=== PATIENT | female | born 1995 | race Caucasian/White ===

== ENCOUNTER 2021-03-18 18:38 | Inpatient (IN) | payer OTHER, SELFPAY ==
[~2021-03-18] VITALS: Ht 157.5 cm; Wt 109.8 kg
[~2021-03-18 18:38] MED LIST: OXYTOCIN 20 UNITS in NACL 0.9% 1,000 ML IV SCH
[2021-03-18 19:40] VITALS: BP 117/75
[2021-03-18] MEDS ORDERED: LACTATED RINGERS 500 ML IV SCH (19:45)
[2021-03-18 20:45] LABS: BASOPHILS % (AUTO) 0.2 % (0.0-2.0); EOSINOPHILS # (AUTO) 0.1 K/uL (0-0.4); EOSINOPHILS % (AUTO) 0.5 % (0.0-4.0); HEMATOCRIT 38.3 % (36-48); HEMOGLOBIN 12.8 g/dL (12.0-16.0); LYMPHOCYTES % (AUTO) 16.2 % (20.5-51.1); MEAN CORPUSCULAR HEMOGLOBIN 30 pg (27-31); MEAN CORPUSCULAR HGB CONC 33 g/dL (33-37); MEAN CORPUSCULAR VOLUME 88.8 fL (80-94); MONOCYTES # (AUTO) 0.9 K/uL (0.8-1.0); NEUTROPHILS # (AUTO) 9.3 K/uL (1.8-7.7); NEUTROPHILS % (AUTO) 76.1 % (42.2-75.2); PLATELET COUNT (AUTO) 225 K/uL (140-450); RED BLOOD CELL COUNT(AUTO) 4.32 MIL/uL (4.20-5.40); RED CELL DISTRIBUTION WIDTH 13.1 % (11.6-13.7); WHITE BLOOD COUNT (AUTO) 12.2 K/uL (4.8-10.8)
[2021-03-18 21:04] LABS: ALBUMIN 2.8 g/dL (3.4-5.0); ANION GAP 14.5 (8-16); CARBON DIOXIDE 19.4 mmol/L (21-32); CREATININE 0.5 mg/dL (0.6-1.3); POTASSIUM 3.9 mmol/L (3.5-5.1); TOTAL BILIRUBIN 0.2 mg/dL (0.0-1.0)
[2021-03-18 22:39] LABS: APPEARANCE,URINE CLEAR (CLEAR); BILIRUBIN,URINE NEGATIVE (NEGATIVE); BLOOD, URINE 3+ (NEGATIVE); COLOR,URINE YELLOW (YELLOW); LEUKOCYTE ESTERASE ,URINE NEGATIVE (NEGATIVE); NITRITE, URINE NEGATIVE (NEGATIVE); UGLUCOSE NEGATIVE (NEGATIVE)
[2021-03-18 22:53] LABS: RBC,URINE 0-5 /HPF (0-5)
[2021-03-18] MEDS: LACTATED RINGERS 1,000 ML IV SCH (23:26)
[2021-03-18] MEDS ORDERED: OXYTOCIN 20 UNITS in LACTATED RINGERS 1,000 ML IV SCH (23:50)
[2021-03-19] MEDS ORDERED: OXYTOCIN 20 UNITS/LR PREMIX 1,000 ML IV ONE (05:51)
--- NOTE | 2021-03-19 08:49 | NUR ---
PATIENT HAS BEEN SCREENED AND CATEGORIZED LOW NUTRITION RISK. PATIENT WILL BE SEEN WITHIN 7 DAYS OF ADMISSION. 03/25/[address]
[2021-03-19] MEDS ORDERED: MORPHINE SULFATE 10 MG/ML VIAL ONE (09:49)
[2021-03-19] MEDS ORDERED: ONDANSETRON 4 MG/2 ML VIAL ONE (09:50)
[2021-03-19] MEDS ORDERED: ONDANSETRON 4 MG/2 ML VIAL IVP PRN (09:50)
[2021-03-19] MEDS: MORPHINE SULFATE 10 MG/ML VIAL IVP PRN ×2 (09:55→13:01)
[2021-03-19] MEDS: LACTATED RINGERS 1,000 ML IV SCH (12:20)
[2021-03-19] MEDS ORDERED: ROPIVACAINE 0.2%/NS PREMIX 0 ML EPI ONE (12:25)
[2021-03-19] MEDS ORDERED: LIDOCAINE 1% 500 MG/50 ML VIAL ONE (12:45)
[2021-03-19 13:01] VITALS: BP 136/76
[2021-03-19] MEDS ORDERED: BENZOCAINE/MENTHOL 20%-0.5% 60 GM CAN TP PRN (15:45)
[2021-03-19] MEDS ORDERED: METHYLERGONOVINE 0.2 MG/ML AMP IM PRN (15:45)
[2021-03-19] MEDS ORDERED: oxyCODONE/APAP 5/325 MG 1 TAB TAB PO PRN (15:45)
[2021-03-19] MEDS ORDERED: HYDROcodone/APAP 5/325 MG 1 TAB TAB PO PRN (15:45)
[2021-03-19] MEDS ORDERED: TEMAZEPAM 15 MG CAP PO PRN (15:45)
[2021-03-19] MEDS ORDERED: DOCUSATE SOD/SENNA 50/8.6 MG 1 TAB PO SCH (21:00)
[2021-03-20] MEDS: IBUPROFEN 600 MG TAB PO PRN ×2 (04:13→13:17)
[2021-03-20 08:46] LABS: HEMATOCRIT 34.4 % (36-48); HEMOGLOBIN 11.7 g/dL (12.0-16.0)
== END 2021-03-20 17:35 | disposition home or self-care (01) | DRG 560 ==
LOC: MLD 18:38 → MFCC 03-19 15:21
PROVIDERS: ADMIT Obstetrics & Gynecology; ATTEND Obstetrics & Gynecology
PROC: 10E0XZZ Delivery of Products of Conception, External Approach (ICD-10-PCS; principal; 2021-03-19)
PROC: 3E033VJ Introduction of Other Hormone into Peripheral Vein, Percutaneous Approach (ICD-10-PCS; 2021-03-19)
PROC: 10907ZC Drainage of Amniotic Fluid, Therapeutic from Products of Conception, Via Natural or Artificial Opening (ICD-10-PCS; 2021-03-19)
PROC: 3E0234Z Introduction of Serum, Toxoid and Vaccine into Muscle, Percutaneous Approach (ICD-10-PCS; 2021-03-19)
DX: O69.1XX0 Labor and delivery complicated by cord around neck, with compression, not applicable or unspecified (principal); Z20.822 Contact with and (suspected) exposure to COVID-19; Z3A.39 39 weeks gestation of pregnancy; Z23 Encounter for immunization; Z37.0 Single live birth
CPT/HCPCS: 36415; 59409; 80053; 81001; 85018; 85025; 86592; 86886; 86900; 86901; 87086; J2001; J2270; J2405; J2590; J2795; J7120